=== PATIENT | female | born 1995 | race Caucasian/White ===

== ENCOUNTER 2019-03-24 15:37 | Outpatient (REF) | payer MEDICAID, SELFPAY | END 2019-03-24 15:57 | LOC: NCHCN 15:37 | PROVIDERS: PCP Nurse Practitioner Family; Visit Provider Nurse Practitioner Family | DX: L02.216 Cutaneous abscess of umbilicus (principal) | CPT/HCPCS: 87077; 87070; 87205 ==

== ENCOUNTER 2024-01-03 14:02 | Outpatient (REF) | payer MEDICAID, SELFPAY ==
[2024-01-03 21:01] LABS: Abs Immature Grans 0.04 10^3/uL (0.0-0.06); Absolute Basophil Count 0.09 10^3/uL (0.0-0.2); Absolute Lymphocyte Count 3.57 10^3/uL (1.2-3.4); Absolute Monocyte Count 0.92 10^3/uL (0.1-0.8); Basophils % 0.6 %; Eosinophils % 4.7 %; HCT 46.6 % (36.0-46.0); HGB 15.8 g/dL (11.2-15.7); Immature Grans % 0.3 %; MCH 30.8 pg (27.0-33.0); MCHC 33.9 % (32.0-36.0); MCV 91 fL (80-95); MPV 11.7 fL (8.0-11.0); Monocytes % 6.2 %; Neutrophils % 64.2 %; Platelet Count 221 10^3/uL (130-400); RBC 5.13 10^6/uL (3.93-5.22); RDW 13.2 % (11.7-14.6); RDW-SD 44.9 fL; WBC 14.88 10^3/uL (4.4-10.8)
[2024-01-03 21:06] LABS: Absolute Neutrophil Count 9.55 10^3/uL (1.2-6.7)
[2024-01-03 21:24] LABS: ALT 40 U/L (14-59); AST 30 U/L (15-37); Albumin 3.8 g/dL (3.4-5.0); Alkaline Phosphatase 124 U/L (46-116); Amylase 43 U/L (25-115); Anion Gap 10.8 mmol/L (3-11); BUN 12 mg/dL (7-18); Bilirubin, Total 0.4 mg/dL (0.2-1.0); CO2 23.2 mmol/L (21.0-32.0); CREATININE 1.1 mg/dL (0.55-1.02); Calcium 8.9 mg/dL (8.5-10.1); Chloride 106 mmol/L (98-107); Estimated GFR 71.07 (mL/min/1.73m2); Glucose 103 mg/dL (74-106); Lipase 27 U/L (16-77); Potassium 4.2 mmol/L (3.5-5.1); Sodium 140 mmol/L (136-145); Total Protein 7.1 g/dL (6.4-8.2)
== END 2024-01-03 14:03 | disposition home or self-care (01) ==
LOC: NCHCN 14:02
PROVIDERS: PCP Nurse Practitioner Family; Visit Provider Physician Assistant
DX: R10.9 Unspecified abdominal pain (principal)
CPT/HCPCS: 80053; 83690; 82150; 85025; 87086

== ENCOUNTER 2024-01-23 16:43 | Outpatient (REF) | payer MEDICAID, SELFPAY ==
--- OUTSIDE RECORDS SUMMARY | 2024-01-23 16:45 | XMS_ITS | Continuity of Care Document ---
Author Name Unknown Organization [facility] Address [address] [place] [address] Care Team Providers Care Radiation Oncology Nurse Name Role Phone Ansley Graves Primary Care Physician Encounter [facility] Date(s): 01/03/24 - 01/03/[address] [address] Discharge Disposition: Home or Self Care Attending Physician: Ansley Graves PA-C Admitting Physician: Ansley Graves PA-C Referring Physician: Ansley Graves PA-C Allergies, Adverse Reactions, Alerts No Known Medication Allergies Medications albuterol 2.5 mg/0.5 mL (0.5%) inhalation solution 0 Refill(s) Start Date: 12/03/23 Status: Ordered Meghan 0 Refill(s) Start Date: 12/03/23 Status: Ordered busPIRone 5 mg oral tablet 0 Refill(s) Start Date: 12/03/23 Status: Ordered DULoxetine 60 mg oral delayed release capsule 0 Refill(s) Start Date: 12/03/23 Status: Ordered Ventolin HFA 90 mcg/inh inhalation aerosol 0 Refill(s) Start Date: 12/03/23 Status: Ordered Problem List Condition Confirmation Course Effective Dates Status Health [facility] Informant Anxiety Confirmed Active Obesity Confirmed Active Seasonal allergy Confirmed Active Social History Social History Type Response Tobacco Never tobacco user T obacco Use:. Sex Female Patient Care team information Care Team Personnel Name: Ansley Graves PA-C Position: PowerChart View Only Member Role: Primary Care Physician Address: Address: [facility] [address], [place] [address] Care Team Related Persons Name: CHERYL TRIANA
--- OUTSIDE RECORDS SUMMARY | 2024-01-23 16:45 | XMS_ITS | Continuity of Care Document ---
Author Name Unknown Organization [facility] Address [address] [place] [address] Care Team Providers Care Explosives Handler Name Role Phone Ansley Graves Primary Care Physician [phone] Encounter [facility] Date(s): 05/14/22 - 05/14/22 [facility] [address] [place] [address] [place] Encounter Diagnosis Left foot pain(Discharge Diagnosis) - 05/14/22 Discharge Disposition: Home or Self Care Attending Physician: Rosalva Dsouza MD Admitting Physician: Rosalva Dsouza MD Allergies, Adverse Reactions, Alerts No Known Medication Allergies Functional Status 05/14/22 Family Member Travel History No recent t ravel Recent Travel History No recent travel Other exposure to Infectious Disease Non e Vital Signs Most recent to oldest [Reference Range]: 1 Temperature Temporal Artery [36-38 Deg C ] 36.5 Deg C (05/14/22 9:38 AM) Peripheral Pulse Rate [60-100 bpm] 92 bp m (05/14/22 9:38 AM) Respiratory Rate [12-24 br/min] 16 br/mi n (05/14/22 9:38 AM) Blood Pressure [90-140/60-90 mmHg] 119/8 4mmHg (05/14/22 9:38 AM) Weight Dosing 95.00 kg (05/14/22 9:53 AM) Weight Estimated 95.00 kg (05/14/22 9:38 AM) Height/Length Dosing 157.000 cm (05/14/22 9:53 AM) Height/Length Estimated 157.000 cm (05/14/22 9:38 AM) Social History Social History Type Response Tobacco Never tobacco user T obacco Use:. Sex Female Hospital Discharge Instructions Patient Education 05/14/2022 10:34:30 Foot Pain Foot Pain Many things can cause foot pain. Some common causes are: ??? An injury. ??? A sprain. ??? Arthritis. ??? Blisters. ??? Bunions. Follow these instructions at home: Managing pain, stiffness, and swelling If directed, put ice on the painful area: ??? Put ice in a plastic bag. ??? Place a towel between your skin and the bag. ??? Leave the ice on for 20 minutes, 2???3 times a day. Activity ??? Do not stand or walk for long periods. ??? Return to your normal activities as told by your health care provider. Ask your health care provider what activities are safe for you. ??? Do stretches to relieve foot pain and stiffness as told by your health care provider. ??? Do not lift anything that is heavier than 10 lb (4.5 kg), or the limit that you are told, untilyour health care provider says that it is safe. Lifting a lot of weight can put added pressure on your feet. Lifestyle ??? Wear comfortable, supportive shoes that fit you well. Do not wear high heels. ??? Keep your feet clean and dry. General instructions ??? Take [id number] and prescription medicines only as told by your health care provider. ??? Rub your foot gently. ??? Pay attention to any changes in your symptoms. ??? Keep all follow-up visits as told by your health care provider. This is important. Contact a health care provider if: ??? Your pain does not get better after a few days of self-care. ??? Your pain gets worse. ??? You cannot stand on your foot. Get help right away if: ??? Your foot is numb or tingling. ??? Your foot or toes are swollen. ??? Your foot or toes turn white or blue. ??? You have warmth and redness along your foot. Summary ??? Common causes of foot pain are injury, sprain, arthritis, blisters, or bunions. ??? Ice, medicines, and comfortable shoes may help foot pain. ??? Contact your health care provider if your pain does not get better after a few days of self-care. This information is not intended to replace advice given to you by your health care provider. Make sure you discuss any questions you have with your health care provider. Document Revised: 10/26/2021 Document Reviewed: 10/26/2021 [employer] Patient Education ?? 2021 [employer] Follow Up Care 05/14/2022 09:38:26 With:Ansley Graves Address: [address] [address]- When:1 week Comments:If needed Patient Care team information Personnel Name: Ansley Graves Address: Address: [id number] [place] [address]
[2024-01-23 19:58] LABS: Abs Immature Grans 0.41 10^3/uL (0.0-0.06); Absolute Lymphocyte Count 1.78 10^3/uL (1.2-3.4); Basophils % 0.4 %; HCT 44.1 % (36.0-46.0); HGB 15.5 g/dL (11.2-15.7); Immature Grans % 1.4 %; Lymphocytes % 5.9 %; MCH 30.8 pg (27.0-33.0); MCHC 35.1 % (32.0-36.0); MCV 88 fL (80-95); MPV 11.1 fL (8.0-11.0); Neutrophils % 85.3 %; Platelet Count 189 10^3/uL (130-400); RBC 5.03 10^6/uL (3.93-5.22); RDW 12.8 % (11.7-14.6); RDW-SD 41.3 fL
[2024-01-23 20:07] LABS: ALT 51 U/L (14-59); AST 40 U/L (15-37); Albumin 3.6 g/dL (3.4-5.0); Alkaline Phosphatase 134 U/L (46-116); BUN 6 mg/dL (7-18); Bilirubin, Total 2.31 mg/dL (0.2-1.0); CREATININE 1.3 mg/dL (0.55-1.02); Calcium 8.9 mg/dL (8.5-10.1); Chloride 99 mmol/L (98-107); Estimated GFR 58.16 (mL/min/1.73m2); Glucose 169 mg/dL (74-106); Sodium 134 mmol/L (136-145); Total Protein 8.2 g/dL (6.4-8.2)
[2024-01-23 20:11] LABS: Absolute Basophil Count 0.12 10^3/uL (0.0-0.2); Absolute Monocyte Count 2.11 10^3/uL (0.1-0.8); Absolute Neutrophil Count 25.71 10^3/uL (1.2-6.7)
[2024-01-23 20:39] LABS: WBC 30.14 10^3/uL (4.4-10.8)
[2024-01-23 20:40] LABS: Diff Comment Diff Reviewed; RBC Morphology Normal
== END 2024-01-23 16:44 | disposition home or self-care (01) ==
LOC: NCHCN 16:43
PROVIDERS: PCP Nurse Practitioner Family; Visit Provider Physician Assistant
DX: R50.9 Fever, unspecified (principal)
CPT/HCPCS: 80053; 85025

== ENCOUNTER 2025-01-19 12:56 | Outpatient (REF) | payer MEDICAID, SELFPAY ==
[2025-01-19 20:49] LABS: ALT 42 U/L (14-59); AST 31 U/L (15-37); Albumin 3.8 g/dL (3.4-5.0); Alkaline Phosphatase 142 U/L (46-116); Anion Gap 10.9 mmol/L (3-11); BUN 8 mg/dL (7-18); Bilirubin, Total 0.3 mg/dL (0.2-1.0); CO2 25.1 mmol/L (21.0-32.0); CREATININE 1.2 mg/dL (0.55-1.02); Calcium 9.1 mg/dL (8.5-10.1); Chloride 104 mmol/L (98-107); Estimated GFR 63.63 (mL/min/1.73m2); Ferritin 77 ng/mL (8-252); Glucose 101 mg/dL (74-106); Potassium 4.3 mmol/L (3.5-5.1); Sodium 140 mmol/L (136-145); TSH 0.87 uIU/mL (0.36-3.74); Total Protein 7.4 g/dL (6.4-8.2); Vitamin B12 662 pg/mL (193-986); Vitamin D 25 Total 24 ng/mL (30-100)
== END 2025-01-19 12:57 | disposition home or self-care (01) ==
LOC: NCHCN 12:56
PROVIDERS: Visit Provider Nurse Practitioner Psychiatric/Mental Health
DX: F32.A Depression, unspecified (principal)
CPT/HCPCS: 80053; 82306; 82607; 82728; 84443

== ENCOUNTER 2025-02-24 12:47 | Outpatient (REF) | payer MEDICAID, SELFPAY ==
[2025-02-24 19:11] LABS: Abs Immature Grans 0.08 10^3/uL (0.0-0.06); HCT 47.8 % (36.0-46.0); HGB 16.5 g/dL (11.2-15.7); Immature Grans % 0.5 %; MCH 31.3 pg (27.0-33.0); MCHC 34.5 % (32.0-36.0); MCV 91 fL (80-95); MPV 10.8 fL (8.0-11.0); Platelet Count 249 10^3/uL (130-400); RBC 5.27 10^6/uL (3.93-5.22); RDW 12.9 % (11.7-14.6); RDW-SD 42.8 fL; WBC 14.99 10^3/uL (4.4-10.8)
== END 2025-02-24 12:48 | disposition home or self-care (01) ==
LOC: NCHCN 12:47
PROVIDERS: Nurse Practitioner Psychiatric/Mental Health; PCP Physician Assistant; Visit Provider Physician Assistant
DX: F32.A Depression, unspecified (principal)
CPT/HCPCS: 85025

== ENCOUNTER 2025-02-27 21:22 | Outpatient (REF) | payer MEDICAID, SELFPAY | END 2025-02-27 21:23 | disposition home or self-care (01) | LOC: NCHCN 21:22 | PROVIDERS: PCP Physician Assistant; Visit Provider Physician Assistant | DX: M54.50 Low back pain, unspecified (principal) | CPT/HCPCS: 87086 ==

== ENCOUNTER 2025-06-02 11:40 | Outpatient (REF) | payer MEDICAID, SELFPAY ==
[2025-06-02 20:20] LABS: Abs Immature Grans 0.09 10^3/uL (0.0-0.06); HCT 47.8 % (36.0-46.0); HGB 16.9 g/dL (11.2-15.7); Immature Grans % 0.6 %; MCH 32.3 pg (27.0-33.0); MCHC 35.4 % (32.0-36.0); MCV 91 fL (80-95); MPV 11.1 fL (8.0-11.0); Platelet Count 251 10^3/uL (130-400); RBC 5.24 10^6/uL (3.93-5.22); RDW 13.3 % (11.7-14.6); RDW-SD 45.1 fL; WBC 14.15 10^3/uL (4.4-10.8)
== END 2025-06-02 11:41 | disposition home or self-care (01) ==
LOC: NCHCN 11:40
PROVIDERS: PCP Physician Assistant; Visit Provider Physician Assistant
DX: D72.828 Other elevated white blood cell count (principal)
CPT/HCPCS: 85025

== ENCOUNTER 2025-06-22 11:00 | Outpatient (REF) | payer MEDICAID, SELFPAY ==
[2025-06-22 19:54] LABS: ALT 40 U/L (10-49); AST 42 U/L (<34); Albumin 4.5 g/dL (3.4-5.0); Alkaline Phosphatase 121 U/L (46-116); Anion Gap 6.1 mmol/L (3-11); BUN 8 mg/dL (9-23); Bilirubin, Total 0.30 mg/dL (0.2-1.2); CO2 27.9 mmol/L (20.0-31.0); Calcium 9.4 mg/dL (8.3-10.6); Chloride 107 mmol/L (98-107); Glucose 102 mg/dL (74-106); Potassium 4.3 mmol/L (3.5-5.1); Sodium 141 mmol/L (136-145); Total Protein 7.2 g/dL (5.7-8.2)
== END 2025-06-22 11:01 | disposition home or self-care (01) ==
LOC: NCHCN 11:00
PROVIDERS: PCP Physician Assistant; Visit Provider Physician Assistant
DX: D72.828 Other elevated white blood cell count (principal)
CPT/HCPCS: 80053